=== PATIENT | male | born 1950 | race Caucasian/White ===

== ENCOUNTER 2020-03-21 07:49 | Day surgery (SDC) | payer MEDICARE, OTHER ==
[2020-03-21] MEDS ORDERED: Dextrose 5%-Lactated Ringers 1,000 ML IV SCH (08:30)
[2020-03-21] MEDS ORDERED: fentaNYL 100 MCG/2 ML SDV ONE (09:17)
[2020-03-21] MEDS ORDERED: Propofol 200 MG/20 ML SDV ONE (09:17)
[2020-03-21] MEDS ORDERED: Midazolam 1 MG/ML 2 ML SDV ONE (09:17)
[2020-03-21] MEDS ORDERED: Pantoprazole 40 MG Vial IVPUSH ONE (10:59)
--- NOTE | 2020-03-28 15:42 | OR ---
DATE OF PROCEDURE: 03/21/2020 SURGEON: Willie Fajardo MD PREOPERATIVE DIAGNOSIS: Iron deficiency anemia. POSTOPERATIVE DIAGNOSIS: Iron deficiency anemia associated with: 1. Large hiatal hernia and ulcerated gastroesophageal reflux disease. 2. Mild antral gastritis. 3. Colonoscopy showing pandiverticulosis. OPERATIVE PROCEDURES: 1. Esophagogastroduodenoscopy with: a. Biopsy of the esophagogastric junction for histologic evaluation. b. Biopsies of antrum for CLOtest (21521). 2. Flexible colonoscopy (60615). ANESTHESIA: IV sedation. INDICATION FOR PROCEDURE: A 70-year-old presenting with some iron deficiency anemia and is to undergo upper and lower endoscopies. The potential risks of the procedures including bleeding and perforation were discussed, and the patient wishes to proceed. DETAILS OF PROCEDURE: The patient was taken to the operating room and placed in a left lateral decubitus position. IV sedation was administered, after which the upper GI endoscope was passed orally through the length of the esophagus and into the stomach with retroflexion view of the fundus, and thereafter, through the pyloric channel and into the junction of the 3rd and 4th portions of the duodenum. Findings included normal hypopharynx, larynx, upper esophageal sphincter, and esophageal body. At the EG junction, there was a quite large hiatal hernia measuring around 6 cm, and this appeared to have, on retroflexion within the stomach, a paraesophageal hernia component to it as well. This was associated with marked inflammation and linear ulcers extending up from the mucosal esophagogastric junction to the esophageal mucosa extending up to around 3 to 4 cm above the mucosal junction. There was no plaquing, stricturing, or gross evidence of neoplasia. Within the stomach, there was some patchy redness in the antrum. Otherwise, the pyloric channel and duodenum were unremarkable. At this point, biopsies were obtained from the antrum and sent for CLOtest for H pylori. Multiple biopsies were obtained from the area of the ulcerations in the gastroesophageal junction and sent for histologic evaluation. Minimal bleeding was seen, and the procedure was then concluded. Attention was taken to the colonoscopy. Initial digital rectal exam was performed and was unremarkable. The colonoscope was passed into the rectum with retroflexion revealing uncomplicated hemorrhoidal columns. The scope was then eventually passed to the level of the cecum. The prep was quite good with only a small amount of liquid stool being present. The patient had pandiverticulosis. These were otherwise uncomplicated and are unlikely to be related to any bleeding. Otherwise, there were no areas of colitis, polyps, or other signs of neoplasia. The scope was then withdrawn, the above findings reconfirmed, and the procedure then concluded. The patient's iron deficiency anemia would likely be associated with the ulcerated gastroesophageal reflux disease, although other causes outside the GI tract could be contributing as well. The patient had been started on Pepcid at a recent appointment, but this was never started. We will give the patient Protonix 40 mg IV in the recovery room and then give him prescription for Protonix 40 mg daily, #30, refill x1 year, and he will be sent for followup with Dr. Patel in [facility] in about 3 weeks with CBC and ferritin to be obtained at that time. If no symptoms control and/or persistent bleeding appears to be clinically evident over time, he would be a candidate for surgical repair of the hiatal hernia. Willie Fajardo MD /[id number]
== END 2020-03-21 12:56 | disposition home or self-care (01) ==
LOC: JP.SDS 07:49
PROVIDERS: ATTEND Surgery
DX: K29.50 Unspecified chronic gastritis without bleeding (principal); K64.9 Unspecified hemorrhoids; K21.0 Gastro-esophageal reflux disease with esophagitis; D50.9 Iron deficiency anemia, unspecified; K44.9 Diaphragmatic hernia without obstruction or gangrene; K57.30 Diverticulosis of large intestine without perforation or abscess without bleeding; K25.9 Gastric ulcer, unspecified as acute or chronic, without hemorrhage or perforation; I10 Essential (primary) hypertension; E78.5 Hyperlipidemia, unspecified
CPT/HCPCS: 43239; 45378; 87081; 88305; C9113; J2250; J2704; J3010; J7121

== ENCOUNTER 2022-12-30 06:17 | Day surgery (SDC) | payer MEDICARE, OTHER ==
[2022-12-30] MEDS ORDERED: Dextrose 5%-Lactated Ringers 1,000 ML IV SCH (07:00)
[2022-12-30] MEDS ORDERED: Propofol 200 MG/20 ML SDV ONE (07:00)
[2022-12-30] MEDS ORDERED: fentaNYL 50 MCG/ML SDV ONE (07:00)
[2022-12-30 07:11] LABS: BASOPHILS ABSOLUTE AUTO 0.08 K/uL (0.00-0.10); BASOPHILS PERCENT AUTO 1.3 % (0.1-1.3); EOSINOPHILS ABSOLUTE AUTO 0.34 K/uL (0.00-0.40); EOSINOPHILS PERCENT AUTO 5.4 % (0.0-5.4); HEMATOCRIT 35.7 % (38.4-49.7); HEMOGLOBIN 11.4 g/dL (12.9-16.9); IMMATURE GRAN ABSOLUTE AUTO 0.03 K/uL (0.00-0.23); IMMATURE GRAN PERCENT AUTO 0.5 % (0.0-0.7); LYMPHOCYTES PERCENT AUTO 39.7 % (11.4-47.7); MEAN CORPUSCULAR HEMOGLOBIN 28.4 pg (31.6-35.5); MEAN CORPUSCULAR HGB CONC 31.9 g/dL (31.6-35.5); MEAN CORPUSCULAR VOLUME 88.8 fL (81.4-99.0); MONOCYTES PERCENT AUTO 11.1 % (3.3-12.6); NEUTROPHILS ABSOLUTE AUTO 2.65 K/uL (1.0-7.6); PLATELET COUNT,PLT 238 K/uL (130-375); RED BLOOD CELL COUNT 4.02 M/uL (4.14-5.76); WHITE BLOOD CELL COUNT,WBC 6.3 K/uL (3.2-11.0)
[2022-12-30] MEDS ORDERED: Ampicillin/Sulbactam Na 3 GM in Sodium Chloride 0.9% 100 ML IV ONE (07:30)
[2022-12-30 07:56] LABS: FOLIC ACID 9.8 ng/ml (8.6-58.9)
[2022-12-30] MEDS ORDERED: Folic Acid 1 MG in Sodium Chloride 0.9% 50 ML IV ONE (09:00)
[2022-12-30] MEDS ORDERED: Cyanocobalamin (Vitamin B12) 1,000 MCG/ML SDV IM ONE (09:00)
[2022-12-30] MEDS ORDERED: Sodium Chloride 0.9% 1,000 ML IV SCH (09:15)
[2022-12-30] MEDS ORDERED: Iron Sucrose Complex 500 MG in Sodium Chloride 0.9% 250 ML IV ONE (09:30)
[2022-12-30 10:27] LABS: A/G RATIO 0.9 (1.2-2.2); ALANINE AMINOTRANSFERASE,ALT 10 U/L (12-78); ALBUMIN 3.2 g/dL (3.4-5.0); ALKALINE PHOSPHATASE 69 U/L (46-116); ANION GAP 10.2 mmol/L (5.0-14.0); ASPARTATE AMNIOTRANSFERASE,AST 19 U/L (15-37); BILIRUBIN TOTAL 0.3 mg/dL (0.2-1.0); BLOOD UREA NITROGEN,BUN 17 mg/dL (7-18); CALCIUM 8.8 mg/dL (8.5-10.1); CARBON DIOXIDE,CO2 26 mmol/L (21-32); CHLORIDE,CL 106 mmol/L (100-108); CREATININE 1.2 mg/dL (0.8-1.3); ESTIMATED GFR 64 mL/min (>60); GLUCOSE RANDOM 91 mg/dL (74-106); PROTEIN TOTAL,TP 6.8 g/dL (6.4-8.2); SODIUM,NA 142 mmol/L (140-148)
[2022-12-30 10:28] LABS: MAGNESIUM 2.2 mg/dL (1.8-2.4); PHOSPHORUS 3.6 mg/dL (2.5-4.9)
== END 2022-12-30 14:15 | disposition home or self-care (01) ==
LOC: JP.SDS 06:17
PROVIDERS: ATTEND Surgery
DX: K22.10 Ulcer of esophagus without bleeding (principal); K44.9 Diaphragmatic hernia without obstruction or gangrene; K31.1 Adult hypertrophic pyloric stenosis; D64.9 Anemia, unspecified; I25.10 Atherosclerotic heart disease of native coronary artery without angina pectoris; I10 Essential (primary) hypertension; I12.9 Hypertensive chronic kidney disease with stage 1 through stage 4 chronic kidney disease, or unspecified chronic kidney disease; N18.9 Chronic kidney disease, unspecified; Z20.822 Contact with and (suspected) exposure to COVID-19; Z95.1 Presence of aortocoronary bypass graft; Z95.5 Presence of coronary angioplasty implant and graft
CPT/HCPCS: 36415; 43235; 80053; 82607; 82728; 82746; 83735; 84100; 85025; 93005; J1756; J2704; J3010; J3420; J3490; J7030; J7050; J7121; U0002

== ENCOUNTER 2023-01-02 09:11 | Inpatient (IN) | payer MEDICARE, OTHER ==
[~2023-01-02 09:11] MED LIST: Bupivacaine 0.5%/EPINEPHrine 1:200,000 50 ML MDV ONE; Dextrose 5%-Lactated Ringers 1,000 ML IV SCH; Meropenem 500 MG SDV ONE; Scopolamine 1.5 MG Transdermal Patch TOP ONE; ceFAZolin 2 GM in Sodium Chloride 0.9% 50 ML IV ONE
[2023-01-02] MEDS ORDERED: Propofol 200 MG/20 ML SDV ONE (09:29)
[2023-01-02] MEDS ORDERED: Rocuronium 50 MG/5 ML Vial ONE (09:29)
[2023-01-02] MEDS ORDERED: Neostigmine Methylsulfate 1 MG/ML 5 ML Syringe ONE (09:29)
[2023-01-02] MEDS ORDERED: Dexamethasone 4 MG/ML SDV ONE (09:29)
[2023-01-02] MEDS ORDERED: Glycopyrrolate 0.2 MG/ML 5 ML MDV ONE (09:29)
[2023-01-02] MEDS ORDERED: Succinylcholine 200 MG/10 ML MDV ONE (09:29)
[2023-01-02] MEDS ORDERED: Ondansetron 4 MG/2 ML SDV ONE (09:29)
[2023-01-02] MEDS ORDERED: fentaNYL 250 MCG/5 ML SDV ONE (09:29)
[2023-01-02] MEDS ORDERED: ceFAZolin 2 GM in Premix Bag 1 BAG IV ONE (10:00)
[2023-01-02] MEDS ORDERED: Dextrose 5%-Lactated Ringers 1,000 ML IV SCH ×2 (10:00→16:45)
[2023-01-02] MEDS ORDERED: Scopolamine 1.5 MG Transdermal Patch TOP ONE (10:00)
[2023-01-02] MEDS ORDERED: Ketamine 20 MG in Sodium Chloride 0.9% 19.8 ML IV SCH (11:00)
[2023-01-02] MEDS ORDERED: Ketamine 500 MG/5 ML MDV IV SCH (11:00)
[2023-01-02] MEDS ORDERED: Sodium Chloride 0.9% 10 ML ONE (14:16)
[2023-01-02] MEDS ORDERED: hydrALAZINE 20 MG/ML SDV ONE (14:16)
[2023-01-02] MEDS ORDERED: Lactated Ringers 1,000 ML ONE (14:29)
[2023-01-02] MEDS ORDERED: fentaNYL 100 MCG/2 ML SDV ONE (15:32)
[2023-01-02] MEDS ORDERED: Cyclobenzaprine 10 MG Tab PO PRN (16:33)
[2023-01-02] MEDS ORDERED: hydrOXYzine HCl 50 MG/ML SDV IM PRN (16:45)
[2023-01-02] MEDS ORDERED: Ondansetron 4 MG/2 ML SDV IVPUSH PRN (16:45)
[2023-01-02] MEDS ORDERED: diphenhydrAMINE 50 MG/ML SDV IVPUSH PRN (16:45)
[2023-01-02] MEDS ORDERED: Labetalol 20 MG/4 ML Syringe IVPUSH PRN (16:45)
[2023-01-02] MEDS ORDERED: Metoclopramide 10 MG/2 ML SDV IVPUSH PRN (16:45)
[2023-01-02] MEDS ORDERED: HYDROmorphone 0.5 MG/0.5 ML Syringe IVPUSH PRN (16:45)
[2023-01-02] MEDS ORDERED: HYDROmorphone 1 MG/ML Syringe IV PRN (16:45)
[2023-01-02] MEDS ORDERED: Acetaminophen 500 MG Tab PO PRN (16:45)
[2023-01-02] MEDS: MVI, Adult with Vitamin K 10 ML, Thiamine 200 MG, Zinc/Copper/Manganese/Selenium 1 ML i... IV SCH ×4 (17:31)
[2023-01-02] MEDS: Pantoprazole 40 MG Vial IVPUSH SCH (17:33)
[2023-01-02] MEDS: Heparin Sodium 5,000 Units/ML Vial SUBCUT SCH (20:13)
[2023-01-02] MEDS: ceFAZolin 2 GM in Premix Bag 1 BAG IV SCH (22:48)
[2023-01-02] MEDS: Acetaminophen 500 MG Tab PO SCH (22:48)
[2023-01-03] MEDS ORDERED: Iopamidol 612 MG/ML 30 ML SDV PO STA (03:35)
[2023-01-03 04:53] LABS: BASOPHILS PERCENT AUTO 0.1 % (0.1-1.3); HEMATOCRIT 40.8 % (38.4-49.7); HEMOGLOBIN 12.7 g/dL (12.9-16.9); IMMATURE GRAN ABSOLUTE AUTO 0.12 K/uL (0.00-0.23); IMMATURE GRAN PERCENT AUTO 0.7 % (0.0-0.7); LYMPHOCYTES ABSOLUTE AUTO 1.36 K/uL (0.8-3.3); MEAN CORPUSCULAR HEMOGLOBIN 28.2 pg (31.6-35.5); MEAN CORPUSCULAR HGB CONC 31.1 g/dL (31.6-35.5); MEAN CORPUSCULAR VOLUME 90.7 fL (81.4-99.0); MONOCYTES ABSOLUTE AUTO 0.46 K/uL (0.20-0.90); MONOCYTES PERCENT AUTO 2.7 % (3.3-12.6); NEUTROPHILS ABSOLUTE AUTO 14.96 K/uL (1.0-7.6); NEUTROPHILS PERCENT AUTO 88.5 % (40.0-78.1); PLATELET COUNT,PLT 259 K/uL (130-375); WHITE BLOOD CELL COUNT,WBC 16.9 K/uL (3.2-11.0)
[2023-01-03 04:59] LABS: BASOPHILS ABSOLUTE AUTO 0.02 K/uL (0.00-0.10)
[2023-01-03 05:18] LABS: A/G RATIO 0.8 (1.2-2.2); ALANINE AMINOTRANSFERASE,ALT 26 U/L (12-78); ALBUMIN 3.4 g/dL (3.4-5.0); ALKALINE PHOSPHATASE 74 U/L (46-116); ANION GAP 15.1 mmol/L (5.0-14.0); ASPARTATE AMNIOTRANSFERASE,AST 64 U/L (15-37); BILIRUBIN TOTAL 0.3 mg/dL (0.2-1.0); BLOOD UREA NITROGEN,BUN 13 mg/dL (7-18); CALCIUM 8.9 mg/dL (8.5-10.1); CARBON DIOXIDE,CO2 26 mmol/L (21-32); CHLORIDE,CL 102 mmol/L (100-108); CREATININE 1.4 mg/dL (0.8-1.3); EST CRCL DRUG DOSING (CG) 44.59 mL/min; ESTIMATED GFR 53 mL/min (>60); GLUCOSE RANDOM 177 mg/dL (74-106); PHOSPHORUS 1.8 mg/dL (2.5-4.9); POTASSIUM,K 4.1 mmol/L (3.6-5.2); PRO B-TYPE NATRIUR PEPT,BNPPRO 376 pg/mL (5-125); PROTEIN TOTAL,TP 7.7 g/dL (6.4-8.2); SODIUM,NA 139 mmol/L (140-148)
[2023-01-03] MEDS: Acetaminophen 500 MG Tab PO SCH ×3 (05:48→21:31)
[2023-01-03] MEDS: ceFAZolin 2 GM in Premix Bag 1 BAG IV SCH ×2 (05:49→14:39)
[2023-01-03] MEDS ORDERED: Potassium Phosphates 3 mMole/ML 15 ML SDV IV ONE (07:17)
[2023-01-03] MEDS ORDERED: Dextrose 5%-Lactated Ringers 1,000 ML IV SCH (07:30)
[2023-01-03] MEDS: Sodium Ferric Gluconate Cmplex 250 MG in Sodium Chloride 0.9% 100 ML IV SCH (09:43)
[2023-01-03] MEDS: Aspirin 81 MG Tab.EC PO SCH (09:50)
[2023-01-03] MEDS: Celecoxib 200 MG Cap PO SCH ×2 (09:50→21:31)
[2023-01-03] MEDS: SCOPOLAMINE PATCH CHECK TOP SCH (09:51)
[2023-01-03] MEDS: Heparin Sodium 5,000 Units/ML Vial SUBCUT SCH ×2 (09:52→19:59)
[2023-01-03] MEDS ORDERED: Potassium Phosphates 20 MMOLE in Sodium Chloride 0.9% 250 ML IV SCH (10:00)
[2023-01-03] MEDS: Potassium Phosphates 20 MMOLE in Sodium Chloride 0.9% 250 ML IV SCH ×3 (15:20→21:30)
[2023-01-03] MEDS: Pantoprazole 40 MG Vial IVPUSH SCH (17:52)
[2023-01-04] MEDS: MVI, Adult with Vitamin K 10 ML, Thiamine 200 MG, Zinc/Copper/Manganese/Selenium 1 ML i... IV SCH ×4 (00:30)
[2023-01-04 04:51] LABS: A/G RATIO 0.9 (1.2-2.2); ALANINE AMINOTRANSFERASE,ALT 21 U/L (12-78); ALKALINE PHOSPHATASE 60 U/L (46-116); ASPARTATE AMNIOTRANSFERASE,AST 50 U/L (15-37); BILIRUBIN TOTAL 0.2 mg/dL (0.2-1.0); BLOOD UREA NITROGEN,BUN 14 mg/dL (7-18); CALCIUM 9.2 mg/dL (8.5-10.1); CARBON DIOXIDE,CO2 30 mmol/L (21-32); CHLORIDE,CL 106 mmol/L (100-108); CREATININE 1.3 mg/dL (0.8-1.3); ESTIMATED GFR 58 mL/min (>60); GLUCOSE RANDOM 106 mg/dL (74-106); MAGNESIUM 2.1 mg/dL (1.8-2.4); PHOSPHORUS 4.8 mg/dL (2.5-4.9); POTASSIUM,K 5.5 mmol/L (3.6-5.2); PROTEIN TOTAL,TP 6.4 g/dL (6.4-8.2); SODIUM,NA 141 mmol/L (140-148)
[2023-01-04 05:02] LABS: ANION GAP 10.5 mmol/L (5.0-14.0)
[2023-01-04] MEDS: Acetaminophen 500 MG Tab PO SCH ×2 (05:18→14:18)
[2023-01-04] MEDS: Heparin Sodium 5,000 Units/ML Vial SUBCUT SCH (08:39)
[2023-01-04] MEDS: Aspirin 81 MG Tab.EC PO SCH (08:39)
[2023-01-04] MEDS: SCOPOLAMINE PATCH CHECK TOP SCH (08:39)
[2023-01-04] MEDS: Celecoxib 200 MG Cap PO SCH (08:39)
[2023-01-04] MEDS ORDERED: Cyanocobalamin (Vitamin B12) 1,000 MCG/ML SDV IM ONE (09:00)
[2023-01-04] MEDS: Sodium Ferric Gluconate Cmplex 250 MG in Sodium Chloride 0.9% 100 ML IV SCH (10:38)
[2023-01-04] MEDS ORDERED: Pantoprazole 40 MG Delayed-Release Granules 1 Packet PO SCH (16:30)
== END 2023-01-04 14:30 | disposition home or self-care (01) | DRG 327 ==
LOC: JP.SDS 09:11 → JP.ICU 15:45
PROVIDERS: ADMIT Surgery; ATTEND Surgery
PROC: 0DV44ZZ Restriction of Esophagogastric Junction, Percutaneous Endoscopic Approach (ICD-10-PCS; principal; 2023-01-02)
PROC: 0BUT4JZ Supplement Diaphragm with Synthetic Substitute, Percutaneous Endoscopic Approach (ICD-10-PCS; 2023-01-02)
PROC: 0WBC4ZZ Excision of Mediastinum, Percutaneous Endoscopic Approach (ICD-10-PCS; 2023-01-02)
DX: K44.9 Diaphragmatic hernia without obstruction or gangrene (principal); K31.1 Adult hypertrophic pyloric stenosis; K21.9 Gastro-esophageal reflux disease without esophagitis; D17.79 Benign lipomatous neoplasm of other sites; I25.10 Atherosclerotic heart disease of native coronary artery without angina pectoris; E78.5 Hyperlipidemia, unspecified; I12.9 Hypertensive chronic kidney disease with stage 1 through stage 4 chronic kidney disease, or unspecified chronic kidney disease; N18.30 Chronic kidney disease, stage 3 unspecified; D50.9 Iron deficiency anemia, unspecified; Z95.1 Presence of aortocoronary bypass graft; Z79.899 Other long term (current) drug therapy
CPT/HCPCS: 36415; 74240; 74240-26; 80053; 83735; 83880; 84100; 85025; 88304; A9270-GY; C1713; C1781; C9113; J0131; J0171; J0330; J0360; J0690; J1100; J1644; J2020; J2185; J2405; J2704; J2710; J2795; J2916; J3010; J3411; J3420; J3490; J7050; J7120; J7121; Q9967